=== PATIENT | female | born 1945 | race Caucasian/White ===

== ENCOUNTER 2017-06-03 08:58 | Day surgery (SDC) | payer MEDICARE ==
[~2017-06-03] VITALS: Ht 154.9 cm; Wt 81.2 kg
[~2017-06-03 08:58] MED LIST: 0.9% Sodium Chloride 1,000 ML IV SCH; FENO160T14 PO; LISI-567 PO; METF500T4 PO; SIMV20TA4 PO; Sodium Chloride LOK Flush 10 mL Syringe IV PRN; fentaNYL-PF 50 mCg/mL 2 mL Inj IVPUSH PRN
[2017-06-03 09:11] VITALS: BP 141/81; PULSE 84; RESP 16; O2SAT 95
[2017-06-03] MEDS ORDERED: ASPI-973 PO (09:14)
[2017-06-03] MEDS ORDERED: LISI1TAB11 PO (09:14)
[2017-06-03] MEDS ORDERED: OMEG-38 PO (09:14)
[2017-06-03] MEDS ORDERED: MULT-1018 PO (09:14)
[2017-06-03] MEDS ORDERED: CYAN100017 SL (09:14)
[2017-06-03] MEDS ORDERED: CALC-243 PO (09:14)
[2017-06-03] MEDS ORDERED: CHOL200047 PO (09:14)
[2017-06-03] MEDS ORDERED: fentaNYL-PF 50 mCg/mL 2 mL Inj IVPUSH ONE (10:01)
[2017-06-03] MEDS ORDERED: 0.9% Sodium Chloride 1,000 ML IV ONE (10:03)
--- NOTE | 2017-06-03 10:04 | PCM.ENDCOL ---
Colonoscopy Date of Service: Jun 03, 2017 Physician Westley Villarreal MD Pre Procedure Diagnosis: Screening Post Procedure Dx & Findings: AVM that was oozing blood Procedure Colonoscopy PROCEDURE IN DETAIL: After unremarkable rectal examination the Olympus video colonoscope was inserted patient's anal canal and was advanced to cecum. Landmarks were identified including the ileocecal valve and appendiceal orifice. Scope was withdrawn systematically. Visualized colonic mucosa showed healthy shiny mucosa with normal healthy-appearing vasculature. In the cecum, there were several AVMs. 2 AVMs which were about a centimeters in size were oozing blood. We cleaned it with water and small amount of blood was still noted. Sides, we injected normal saline 5ml at 1st site and 6 mL and the other. Argon used for therapeutic purposes and complete hemostasis achieved. In the rectum retroflexion was done which showed hemorrhoids. Anal canal was inspected carefully on the way out and hemorrhoids noted. Impression AVM in the cecum and 2 of them were bleeding. APC was successfully. Hemorrhoids Recommendation Repeat colonoscopy 3 month for screening purposes. I do not want to cause another source of potential bleeding. Presedation Assessment Risks and Benefits Informed consent was obtained from the patient after all risks and benefits including but not limited to drug reaction, infection, pain, bleeding, perforation, as well as alternatives were discussed. Patient monitoring Continuous pulse oximetry, cardiac monitoring, blood pressure monitoring, IV access, and oxygen at 2L per nasal cannula. Periprocedural Fentanyl: Fentanyl 100mcg Incrementally Midazolam: Midazolam 6mg Incrementally Complications There were no periprocedural complications identified. Post Procedure Plan Post Procedure Recommendations 1. Restrict activities today. 2. Resume normal activities in the morning. 3. Resume medications. 4. Patient informed of normal post procedure side effects as bloating, drowsiness, blood streaking in the stool. 5. average risk CRCS. If colon polyps come back as: -Hyperplastic- can repeat colonoscopy in 10 years -Tubular adenoma- repeat colonoscopy in 5 years -Tubulovillous/villous adenoma- repeat colonoscopy in 3 years -If any dysplasia- return to clinic as soon as possible 6. Please don't hesitate to call me with any questions. Westley Villarreal MD Jun 03, 2017 10:04
[2017-06-03 10:12] VITALS: BP 122/72; PULSE 79; O2SAT 91
[2017-06-03 10:22] VITALS: BP 118/67; PULSE 80; O2SAT 95
[2017-06-03 10:29] VITALS: BP 123/72; PULSE 80; O2SAT 95
== END 2017-06-03 23:59 | disposition home or self-care (01) ==
LOC: END 08:58 → EDUNIT# 09:45 → END 23:59
PROVIDERS: ATTEND Internal Medicine
DX: Z12.11 Encounter for screening for malignant neoplasm of colon (principal); Z86.010 Personal history of colon polyps; Q27.39 Arteriovenous malformation, other site; K64.9 Unspecified hemorrhoids; E11.9 Type 2 diabetes mellitus without complications; R16.0 Hepatomegaly, not elsewhere classified; Z79.84 Long term (current) use of oral hypoglycemic drugs
CPT/HCPCS: 45381; 45382; 99153; G0500; J2250; J7030